=== PATIENT | female | born 2005 | race Caucasian/White ===

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

== ENCOUNTER → 2023-02-14 | Outpatient (CLI) | payer OTHER ==
[2023-02-15 10:43] LABS: Candida species (DNA Probe) Negative (NEGATIVE); G. vaginalis (DNA Probe) Negative (NEGATIVE); T. vaginalis (DNA Probe) Negative (NEGATIVE)
== END | disposition home or self-care (01) ==
LOC: LAB 13:06 → LAB SHORT 13:06
PROVIDERS: Nurse Practitioner
DX: R30.0 Dysuria (principal); R35.0 Frequency of micturition
CPT/HCPCS: 87086; 87480; 87510; 87660

== ENCOUNTER → 2023-06-01 | Outpatient (CLI) | payer OTHER ==
[2023-06-03 01:08] LABS: CHLAMYDIA TRACHOMATIS, NAA Negative (Negative)
== END ==
LOC: LAB 18:22 → LAB SHORT 18:22
PROVIDERS: Obstetrics & Gynecology
DX: Z11.3 Encounter for screening for infections with a predominantly sexual mode of transmission (principal)
CPT/HCPCS: 87491; 87591

== ENCOUNTER → 2023-10-11 | Outpatient (CLI) | payer OTHER ==
[2023-10-11 12:27] LABS: Source, Urine Clean Catch
[2023-10-11 15:40] LABS: Bilirubin, Urine Neg (Neg); Blood, Urine 3+ (Neg); Glucose Qualitative, Urine Neg (Neg); Ketones, Urine Neg (Neg); Leukocyte Esterase, Urine 3+ (Neg); Nitrite, Urine Neg (Neg); Protein, Urine 1+ (Neg); Urobilinogen, Urine NORM (Normal)
[2023-10-11 15:41] LABS: Appearance, Urine Hazy (Clear); Color, Urine Yellow (P-Yellow)
[2023-10-11 15:49] LABS: Amorphous Mod (0-Heavy); Bacteria Mod /hpf; Red Blood Cells, Urine 0-2 /hpf (0-2); Squamous Epithelial Cells Few /hpf (Few)
== END | disposition home or self-care (01) ==
LOC: LAB 12:23 → LAB SHORT 12:23
PROVIDERS: Obstetrics & Gynecology
DX: R52 Pain, unspecified (principal)
CPT/HCPCS: 81001; 87086

== ENCOUNTER → 2023-11-20 | Outpatient (CLI) | payer OTHER | LOC: LAB SHORT 13:47 → LAB 13:47 | DX: O09.893 Supervision of other high risk pregnancies, third trimester (principal); Z3A.00 Weeks of gestation of pregnancy not specified | CPT/HCPCS: 87081; 87150 ==

== ENCOUNTER → 2023-11-27 | Outpatient (CLI) | payer OTHER ==
[2023-11-27 14:48] LABS: Source, Urine Clean Catch
[2023-11-27 16:43] LABS: Appearance, Urine Clear (Clear); Bilirubin, Urine Neg (Neg); Blood, Urine 3+ (Neg); Color, Urine Yellow (P-Yellow); Glucose Qualitative, Urine Neg (Neg); Ketones, Urine Neg (Neg); Leukocyte Esterase, Urine 3+ (Neg); Nitrite, Urine Neg (Neg); Protein, Urine Neg (Neg); Urobilinogen, Urine NORM (Normal)
[2023-11-27 16:59] LABS: Bacteria Many /hpf; Calcium Oxalate Crystals Few /hpf; Squamous Epithelial Cells Few /hpf (Few)
== END ==
LOC: LAB SHORT 14:47 → LAB 14:47
PROVIDERS: Obstetrics & Gynecology
DX: R82.90 Unspecified abnormal findings in urine (principal)
CPT/HCPCS: 81001; 87086

== ENCOUNTER 2023-12-14 19:47 | Inpatient (IN) | payer OTHER ==
[~2023-12-14] VITALS: Ht 152.4 cm; Wt 84.0 kg
[2023-12-14] VITALS (7 sets, daily range): BP systolic 118–125; BP diastolic 71–79
[2023-12-14] MEDS ORDERED: Castor Oil 59.146 ML BTL TOP SCH (20:00)
[2023-12-14] MEDS ORDERED: Oxytocin 10 Unit / ML Vial IM SCH (20:00)
[2023-12-14] MEDS ORDERED: Misoprostol 25 MCG Tab VAG PRN (20:00)
[2023-12-14] MEDS ORDERED: Lactated Ringer's 1,000 ML IV SCH ×2 (20:00)
[2023-12-14] MEDS ORDERED: FentaNYL 2mcg/ml-Bup 0.1% Epd 250 ML EPI PRN (20:00)
[2023-12-14] MEDS ORDERED: Methylergonovine Maleate 0.2MG / ML 1ML Amp IM SCH (20:00)
[2023-12-14] MEDS ORDERED: ePHEDrine Sulfate 50 MG/ML 1ML Injection XX PRN (20:00)
[2023-12-14] MEDS ORDERED: Lactated Ringer's 1,000 ML IV PRN (20:00)
[2023-12-14] MEDS ORDERED: LR Oxytocin 20 Units 1,000 ML IV SCH ×2 (20:00)
[2023-12-14] MEDS ORDERED: Bupivacaine HCl 2.5 MG/ML 10ML P/F Injection XX SCH (20:00)
[2023-12-14] MEDS ORDERED: Lidocaine HCl 1% 30 ML SDV XX SCH (20:00)
[2023-12-14] MEDS ORDERED: Misoprostol 200 MCG Tab PR SCH (20:00)
[2023-12-14] MEDS ORDERED: Bupivacaine 0.5% HCl 5 MG/ML 30MLVIAL XX SCH (20:00)
[2023-12-14] MEDS ORDERED: ASPI81CH PO (20:06)
[2023-12-14] MEDS ORDERED: PRENATAL TABLE1 EAC2 PO (20:07)
[2023-12-14 20:23] LABS: BASOPHILS ABSOLUTE AUTO 0.07 K/mm3 (0.00-0.23); BASOPHILS PERCENT AUTO 0 % (0-2); EOSINOPHILS ABSOLUTE AUTO 0.08 K/mm3 (0.00-0.68); EOSINOPHILS PERCENT AUTO 0 % (0-6); IMMATURE GRAN ABSOLUTE AUTO 0.13 K/mm3 (0.00-0.10); IMMATURE GRAN PERCENT AUTO 1 % (0-1); LYMPHOCYTES ABSOLUTE AUTO 2.23 K/mm3 (0.84-5.20); LYMPHOCYTES PERCENT AUTO 11 % (21-46); MONOCYTES ABSOLUTE AUTO 1.09 K/mm3 (0.16-1.47); MONOCYTES PERCENT AUTO 6 % (4-13); Mean Corpuscular HGB 32.6 pg (26.0-34.0); Mean Corpuscular Volume 93 fL (80-100); NEUTROPHILS PERCENT AUTO 82 % (41-73); Platelet Count 282 K/mm3 (150-400); RDW Coefficient Variation 12.4 % (11.7-14.2); RDW Standard Deviation 42.5 fL (35.1-46.3)
[2023-12-14] MEDS ORDERED: Calcium Carbonate 500 MG Tab Chew PO PRN (20:45)
[2023-12-14] MEDS ORDERED: FentaNYL Citrate 50 MCG/ML 2 ML Injection IV PRN (20:45)
[2023-12-14] MEDS ORDERED: Ondansetron HCl 2 MG / ML 2ML Vial IV PRN (20:45)
[2023-12-14] MEDS ORDERED: Zolpidem Tartrate 5 MG Tab PO PRN (20:45)
[2023-12-14] MEDS ORDERED: Acetaminophen 500 MG Tab PO PRN (20:45)
[2023-12-15] VITALS (34 sets, daily range): BP systolic 107–144; BP diastolic 56–96
[2023-12-15] MEDS ORDERED: Lidocaine HCl 2% 10 ML SDA ONE (09:52)
[2023-12-15] MEDS ORDERED: Docusate Sodium 100 MG Cap PO PRN (11:40)
[2023-12-15] MEDS ORDERED: Ibuprofen 400 MG Tab PO PRN (11:40)
[2023-12-15] MEDS ORDERED: FLU VACC QS2023-24(6MOS UP)/PF 60 MCG/0.5 ML SYRINGE IM PRN (11:40)
[2023-12-15] MEDS ORDERED: Rho(D) Immune Globulin 300 MCG / SYR IM ONE (11:40)
[2023-12-15] MEDS ORDERED: Witch Hazel/Glycerin PADS TOP PRN (11:40)
[2023-12-15] MEDS ORDERED: Benzocaine Topical Anesthetic Spray 60GM TOP PRN (11:45)
[2023-12-15] MEDS ORDERED: Carboprost Tromethamine 250 MCG/ML 1ML Amp IM PRN (11:45)
[2023-12-15] MEDS ORDERED: Misoprostol 200 MCG Tab PR PRN (11:45)
[2023-12-15] MEDS ORDERED: Methylergonovine Maleate 0.2MG / ML 1ML Amp IM PRN (11:45)
[2023-12-15] MEDS ORDERED: Lactated Ringer's 1,000 ML IV SCH (11:45)
[2023-12-15] MEDS ORDERED: LR Oxytocin 20 Units 1,000 ML IV SCH (11:45)
[2023-12-15] MEDS ORDERED: Ketorolac Tromethamine 30mg Vial IV ONE (12:00)
[2023-12-15] MEDS ORDERED: Misoprostol 200 MCG Tab PO ONE (16:14)
[2023-12-15] MEDS ORDERED: Ketorolac Tromethamine 30mg Vial IV PRN (18:00)
[2023-12-16 04:04] VITALS: BP 120/55
[2023-12-16 05:25] LABS: BASOPHILS ABSOLUTE AUTO 0.08 K/mm3 (0.00-0.23); BASOPHILS PERCENT AUTO 0 % (0-2); EOSINOPHILS ABSOLUTE AUTO 0.11 K/mm3 (0.00-0.68); EOSINOPHILS PERCENT AUTO 0 % (0-6); Hematocrit 29.6 % (33.0-51.0); Hemoglobin 10.2 g/dL (11.5-16.0); IMMATURE GRAN ABSOLUTE AUTO 0.21 K/mm3 (0.00-0.10); IMMATURE GRAN PERCENT AUTO 1 % (0-1); LYMPHOCYTES ABSOLUTE AUTO 3.27 K/mm3 (0.84-5.20); LYMPHOCYTES PERCENT AUTO 13 % (21-46); MONOCYTES ABSOLUTE AUTO 1.76 K/mm3 (0.16-1.47); MONOCYTES PERCENT AUTO 7 % (4-13); Mean Corpuscular HGB 32.7 pg (26.0-34.0); Mean Corpuscular HGB Conc 34.5 g/dL (31.5-36.5); Mean Corpuscular Volume 95 fL (80-100); Mean Platelet Volume 9.9 fL (9.1-12.4); NEUTROPHILS PERCENT AUTO 78 % (41-73); Platelet Count 199 K/mm3 (150-400); RDW Coefficient Variation 12.8 % (11.7-14.2); RDW Standard Deviation 44.5 fL (35.1-46.3); Red Blood Cell Count 3.12 M/mm3 (3.80-5.20); White Blood Cell Count 24.53 K/mm3 (4.00-11.30)
[2023-12-16 08:25] VITALS: BP 111/67
[2023-12-16] MEDS ORDERED: Prenatal Vit/FE Fumarate/FA 1 Tab PO SCH (09:00)
[2023-12-16] MEDS ORDERED: IBU800 MG PO (17:29)
[2023-12-16 18:32] VITALS: BP 112/65
[2023-12-16] MEDS ORDERED: Lanolin Cream TOP SCH (18:40)
[2023-12-16 21:13] VITALS: BP 112/58
[2023-12-16 23:50] VITALS: BP 110/69
== END 2023-12-16 23:55 | disposition home or self-care (01) | DRG 806 ==
LOC: BC 19:47
PROVIDERS: ADMIT Obstetrics & Gynecology
PROC: 3E033VJ Introduction of Other Hormone into Peripheral Vein, Percutaneous Approach (ICD-10-PCS; 2023-12-14)
PROC: 3E0P7VZ Introduction of Hormone into Female Reproductive, Via Natural or Artificial Opening (ICD-10-PCS; 2023-12-14)
PROC: 10E0XZZ Delivery of Products of Conception, External Approach (ICD-10-PCS; principal; 2023-12-15)
PROC: 0HQ9XZZ Repair Perineum Skin, External Approach (ICD-10-PCS; 2023-12-15)
PROC: 10907ZC Drainage of Amniotic Fluid, Therapeutic from Products of Conception, Via Natural or Artificial Opening (ICD-10-PCS; 2023-12-15)
DX: O48.0 Post-term pregnancy (principal); D62 Acute posthemorrhagic anemia; Z37.0 Single live birth; D68.51 Activated protein C resistance; O99.12 Other diseases of the blood and blood-forming organs and certain disorders involving the immune mechanism complicating childbirth; O36.0930 Maternal care for other rhesus isoimmunization, third trimester, not applicable or unspecified; Z3A.40 40 weeks gestation of pregnancy; O70.0 First degree perineal laceration during delivery; O90.81 Anemia of the puerperium; O99.334 Smoking (tobacco) complicating childbirth; F17.290 Nicotine dependence, other tobacco product, uncomplicated; O99.344 Other mental disorders complicating childbirth; F31.9 Bipolar disorder, unspecified; F41.9 Anxiety disorder, unspecified; F90.9 Attention-deficit hyperactivity disorder, unspecified type; F43.10 Post-traumatic stress disorder, unspecified; O76 Abnormality in fetal heart rate and rhythm complicating labor and delivery; O69.82X0 Labor and delivery complicated by other cord entanglement, without compression, not applicable or unspecified; O77.0 Labor and delivery complicated by meconium in amniotic fluid; Z79.82 Long term (current) use of aspirin
CPT/HCPCS: 36415; 51702; 59025; 85025; 86850; 86870; 86900; 86901; A9270; J1885; J2001; J2210; J2590; J3010; J7120

== ENCOUNTER 2024-12-11 14:37 | Observation (INO) | payer OTHER ==
[~2024-12-11] VITALS: Ht 165.1 cm; Wt 56.8 kg
[~2024-12-11 14:37] MED LIST changes: +ASPI81CH PO; +IBU800 MG PO; +PRENATAL TABLE1 EAC2 PO
[2024-12-11 15:44] LABS: Source, Urine Clean Catch
[2024-12-11 15:53] LABS: Appearance, Urine Clear (Clear); Bilirubin, Urine Neg (Neg); Blood, Urine 4+ (Neg); Glucose Qualitative, Urine Neg (Neg); Ketones, Urine Neg (Neg); Leukocyte Esterase, Urine Neg (Neg); Nitrite, Urine Neg (Neg); Protein, Urine Neg (Neg); Specific Gravity, Urine 1.005 (1.003-1.022); Urobilinogen, Urine NORM (Normal)
[2024-12-11 16:13] LABS: Bacteria Not Seen /hpf; Color, Urine Pale Yellow (P-Yellow); Squamous Epithelial Cells Not Seen /hpf (Few); White Blood Cells, Urine 0-2 /hpf (0-5)
[2024-12-11 16:52] LABS: BASOPHILS ABSOLUTE AUTO 0.11 K/mm3 (0.00-0.23); BASOPHILS PERCENT AUTO 1 % (0-2); EOSINOPHILS ABSOLUTE AUTO 0.05 K/mm3 (0.00-0.68); EOSINOPHILS PERCENT AUTO 1 % (0-6); Hematocrit 44.1 % (33.0-51.0); Hemoglobin 15.2 g/dL (11.5-16.0); IMMATURE GRAN ABSOLUTE AUTO 0.03 K/mm3 (0.00-0.10); IMMATURE GRAN PERCENT AUTO 0 % (0-1); LYMPHOCYTES ABSOLUTE AUTO 3.88 K/mm3 (0.84-5.20); LYMPHOCYTES PERCENT AUTO 39 % (21-46); MONOCYTES ABSOLUTE AUTO 0.71 K/mm3 (0.16-1.47); MONOCYTES PERCENT AUTO 7 % (4-13); Mean Corpuscular HGB 32.5 pg (26.0-34.0); Mean Corpuscular HGB Conc 34.5 g/dL (31.5-36.5); Mean Corpuscular Volume 94 fL (80-100); Mean Platelet Volume 9.2 fL (9.1-12.4); NEUTROPHILS PERCENT AUTO 53 % (41-73); Platelet Count 374 K/mm3 (150-400); RDW Coefficient Variation 14.1 % (11.7-14.2); Red Blood Cell Count 4.68 M/mm3 (3.80-5.20); White Blood Cell Count 10.08 K/mm3 (4.00-11.30)
[2024-12-11] MEDS ORDERED: NS 1,000 ML IV SCH (17:00)
[2024-12-11 17:05] LABS: U Amphetamine Screen Not Detected; U Barbituate Screen Not Detected; U Benzodiazapine Screen Not Detected; U Buprenorphine Screen Not Detected; U Cannabinoids Screen Not Detected; U Cocaine Screen Not Detected; U Methadone Screen Not Detected; U Methamphetamine Screen Not Detected; U Opiates Screen Not Detected; U Oxycodone Screen Not Detected; U Phencyclidine Screen Not Detected
[2024-12-11 17:05] LABS: International Normalized Ratio 0.94; Prothrombin Time Results 10.1 Sec (9.7-11.5)
[2024-12-11] MEDS ORDERED: LORazepam 2 MG/ML 1ML Injection IV ONE (17:10)
[2024-12-11 17:49] LABS: Albumin, Blood 4.2 g/dL (3.4-5.0); Bilirubin, Total 0.5 mg/dL (0.1-1.0); Bun/Creatinine Ratio 18.6 (12.0-20.0); Calcium, Blood 9.8 mg/dL (8.5-10.1); Creatinine, Blood 0.65 mg/dL (0.40-1.00); Globulin, Blood 4.2 g/dL (2.2-4.0); Potassium, Blood 3.4 mmol/L (3.5-5.5); Total Protein, Blood 8.4 g/dL (6.4-8.2)
[2024-12-11] MEDS ORDERED: Lactated Ringer's 1,000 ML IV ONE (20:10)
[2024-12-11] MEDS ORDERED: Diazepam 5 MG Tab PO ONE (20:25)
[2024-12-12] MEDS ORDERED: Ondansetron 4 MG SoluTab SL ONE (09:30)
[2024-12-12] MEDS ORDERED: Ondansetron HCl 2 MG / ML 2ML Vial IV ONE (10:55)
[2024-12-12] MEDS ORDERED: LORazepam 2 MG/ML 1ML Injection IV ONE (10:55)
[2024-12-12] MEDS ORDERED: LORazepam 2 MG/ML 1ML Injection IV PRN ×2 (11:40→11:45)
[2024-12-12] MEDS ORDERED: Ondansetron HCl 2 MG / ML 2ML Vial IV PRN (11:40)
[2024-12-12] MEDS ORDERED: ChlordiazePOXIDE 25 MG Cap PO PRN ×2 (11:40)
[2024-12-12] MEDS ORDERED: FLU VACC TS2024-25(6MOS UP)/PF 45 MCG/0.5 ML SYRINGE IM SCH (11:40)
[2024-12-12] MEDS ORDERED: Loperamide HCl 2 MG Cap PO PRN (11:45)
[2024-12-12] MEDS ORDERED: Potassium Chloride 20 MEQ TabCR PO ONE (12:00)
[2024-12-12 12:58] LABS: Bun/Creatinine Ratio 17.5 (12.0-20.0); Calcium, Blood 9.3 mg/dL (8.5-10.1); Creatinine, Blood 0.52 mg/dL (0.40-1.00); Magnesium, Blood 1.7 mg/dL (1.6-2.4); Potassium, Blood 3.8 mmol/L (3.5-5.5); Thyroid Stimulating Hormone 0.803 uIU/mL (0.360-4.800)
[2024-12-12 14:47] VITALS: BP 117/79
--- NOTE | 2024-12-12 15:10 | NUR ---
PT ARRIVAL: PT ARRIVES TO UNIT VIA BED AND PATIENT TRANSFFERED TO OUR BED AMBULATING TO BED A STAND BY ASSSIT, AND HAD A STEADY GAIT DURING THE TRANSFER. PATIENT HOOKED UP TO TELEMTRY AND VITAL SIGNS STABLE. CIWA DONE AND PER CIWA SCALE PATIENT IS GOING THROUGH A STABLE WITHDRAW. WAS ORIENTED TO ROOM AND NOTIFIED THAT ER NURSE LIVIA CALLED HER MOM NOITIFYING HER THAT SHE WOULD BE TRANSFFERING TO PCU. PT NOTIFIED SHE WILL HAVE A SITTER AND ORIENTED TO ROOM AND THE UNIT. HAS BED IN LOWEST POSITION AND CALL LIGHT WITHIN REACH.
--- NOTE | 2024-12-12 15:50 | NUR ---
NOTIFIED; THIS RN CALLED MD WALLS REGARDING PATIENTS POTASSIUM DUE AT 12 THAT WAS NOT GIVEN IN THE EMERGENCY ROOM. MD GAVE VERBAL ORDERS TO NOT GIVE THE MEDICATION AND SHE WILL DISCTONINUE THE MEDICATION.
[2024-12-12 16:21] VITALS: BP 121/85
[2024-12-12] MEDS ORDERED: Mag Sulfate 1 GM/D5% 100ML 100 ML IV STA (16:56)
[2024-12-12] MEDS ORDERED: D5W-LR 1,000 ML IV SCH (17:00)
[2024-12-12] MEDS ORDERED: Nicotine 21 MG PATCH TOP SCH (17:25)
--- NOTE | 2024-12-12 17:46 | NUR ---
SHIFT SUMMARY: PATIENT IS ALERT AND ORIENTED X4 AND ACTIVE IN HER CARE. IS ABLE TO MAKE NEEDS KNOWN AND USES CALL LIGHT APPROPIRATELY. CIWA SINCE ARRIVAL HAS BEEN 9. PATIENT ON TELE SHOWING SINUS TACH WITH RATE 105-130. PATIENT DOES TACH UP TO THE 130'S WHEN AMBULATING AND WHEN FIRST WAKING UP. SATTING >92% ON ROOM AIR, EVEN AND UNLABORED RESPIRATIONS AT REST. PATIENT IS TALKING AND DENYING HEARING/SEEING ANYTHING. SEE ARIVAL NOTE FOR FURTHER INFORMATION. PATIENT BLOOD SUGAR WAS LOW WHEN PCT CHECKED AT RN'S REQUEST AND DEXTROSE WAS ORDERED. MAG WAS ALSO ORDERED AND RUN, A NEW LINE WAS PLACED IN THE LEFT FOREARM AND PATIENT TOLERATED IT WELL. PATIENT WAS ABLE TO REST AND DENIES ANY PAIN OR NEEDS AT THIS TIME. HAS CALL LIGHT WITHIN REACH AND BED IN LOWEST POSITION.
[2024-12-12 20:12] VITALS: BP 119/77
[2024-12-13] VITALS (7 sets, daily range): BP systolic 97–142; BP diastolic 71–102
[2024-12-13 04:27] LABS: BASOPHILS ABSOLUTE AUTO 0.05 K/mm3 (0.00-0.23); BASOPHILS PERCENT AUTO 1 % (0-2); EOSINOPHILS ABSOLUTE AUTO 0.16 K/mm3 (0.00-0.68); EOSINOPHILS PERCENT AUTO 2 % (0-6); Hematocrit 38.2 % (33.0-51.0); Hemoglobin 12.6 g/dL (11.5-16.0); IMMATURE GRAN ABSOLUTE AUTO 0.01 K/mm3 (0.00-0.10); IMMATURE GRAN PERCENT AUTO 0 % (0-1); LYMPHOCYTES ABSOLUTE AUTO 2.56 K/mm3 (0.84-5.20); LYMPHOCYTES PERCENT AUTO 35 % (21-46); MONOCYTES ABSOLUTE AUTO 0.85 K/mm3 (0.16-1.47); MONOCYTES PERCENT AUTO 12 % (4-13); Mean Corpuscular HGB 31.8 pg (26.0-34.0); Mean Corpuscular Volume 97 fL (80-100); Mean Platelet Volume 9.5 fL (9.1-12.4); NEUTROPHILS ABSOLUTE AUTO 3.76 K/mm3 (1.96-9.15); NEUTROPHILS PERCENT AUTO 51 % (41-73); Platelet Count 259 K/mm3 (150-400); RDW Coefficient Variation 13.3 % (11.7-14.2); RDW Standard Deviation 47.9 fL (35.1-46.3); Red Blood Cell Count 3.96 M/mm3 (3.80-5.20); White Blood Cell Count 7.39 K/mm3 (4.00-11.30)
--- NOTE | 2024-12-13 04:30 | NUR ---
SHIFT SUMMARY. SHIFT HAS BEEN UNREMARKABLE. PT AOX4, PLEASANT, COOPERATIVE WITH CARE, ABLE TO MAKE NEEDS KNOWN. SOMEWHAT FLAT DEMEANOR THROUGHOUT SHIFT BUT VERY PLEASANT. HAS BEEN ABLE TO REST COMFORTABLY THROUGHOUT MOST OF SHIFT. VITALS HAVE BEEN STABLE. PT HAS BEEN RUNNING SINUS THROUGHOUT SHIFT WITH RATE SETTLING IN THE 70s-80s RANGE WHILE SLEEPING AND UP TO 100s-120s WHILE AWAKE. MAINTAINS ADEQUATE SATURATION ON ROOM AIR. 1:[address] THROUGHOUT SHIFT[address] MINIMAL OBSERVED SIGNS OF WITHDRAWAL. CIWA HAS BEEN <8 THROUGHOUT SHIFT, NOT MEDICATED PER CIWA PROTOCOLS THUS FAR. BED LOCKED IN LOWEST POSITION. CALL LIGHT LEFT WITHIN REACH. CONTINUING TO MONITOR.
[2024-12-13 04:51] LABS: Albumin, Blood 3.3 g/dL (3.4-5.0); Bilirubin, Total 1.3 mg/dL (0.1-1.0); Bun/Creatinine Ratio 12.4 (12.0-20.0); Calcium, Blood 8.7 mg/dL (8.5-10.1); Creatinine, Blood 0.65 mg/dL (0.40-1.00); Globulin, Blood 3.2 g/dL (2.2-4.0); Potassium, Blood 4.1 mmol/L (3.5-5.5); Total Protein, Blood 6.5 g/dL (6.4-8.2)
[2024-12-13] MEDS ORDERED: Enoxaparin 40 MG/0.4 ML SYR SC SCH (09:00)
[2024-12-13] MEDS ORDERED: Folic Acid 1 MG TAB PO SCH (09:00)
[2024-12-13] MEDS ORDERED: Thiamine HCl 100 MG Tab PO SCH (09:00)
--- NOTE | 2024-12-13 13:22 | NUR ---
TRANSFER: PT TRANSFERRED TO MEDICAL ROOM 344 FROM PCU 8 VIA WHEELCHAIR. REPORT CALLED TO MED RN. ALL BELONGINGS WITH PT.
--- NOTE | 2024-12-13 16:40 | NUR ---
TRANSFER AND SHIFT SUMMARY PATIENT ALERT AND INTERACTIVE. PATIENT DENIES ANY SI AT THIS TIME. PATIENT INDEPENDENT IN THE ROOM. SITTER PRESENT. DENIES HALLUCINATIONS. PATIENT NOTED TO HAVE MILD TREMORS AND HEARTBURN. PATIENT MEDICATED IN PCU WITH LIBRIUM. ZOFRAN GIVEN FOR HEARTBURN WITH MINIMAL RESULTS. ATTEMPTED TO CALL PROVIDER RELATED TO HEARTBURN. MESSAGE LEFT AND NO NEW ORDERS. PATIENT TO GO TO [facility] IF MEDICALLY STABLE TOMORROW.
--- NOTE | 2024-12-13 19:59 | NUR ---
PATIENT HAS ORDER FOR NO CHEMICAL DVT PROPHYLAXIS, PATIENT REFUSED TO HAVE SCD'S. PATIENT AMBULATES FREQUENTLY IN ROOM.
[2024-12-13] MEDS ORDERED: Temazepam 7.5 MG Cap PO ONE (21:50)
[2024-12-14 00:09] VITALS: BP 101/67
[2024-12-14 03:57] VITALS: BP 96/62
--- NOTE | 2024-12-14 05:08 | NUR ---
SHIFT SUMMARY. PATIENT IS A&OX4, PLEASANT AND COOPERATIVE WITH CARE. PATIENT HAS 1:1 SITTER FOR SI. PATIENT IS ABLE TO AMBULATE INDEPENDENTLY IN ROOM. PATIENT C/O INSOMNIA TONIGHT-HOSPITALIST CONTACTED AND ORDERED FOR 1X DOSE OF TEMAZEPAM-SEE ORDERS. PATIENT ABLE TO GET SOME REST THIS SHIFT. NO ACUTE CHANGES NOTED. PLAN IS FOR PATIENT TO GO TO [facility] TODAY 12/14/24. BED IS LOCKED IN THE LOWEST POSITION WITH CALL LIGHT IN REACH. CARE IS ONGOING.
[2024-12-14 06:47] LABS: BASOPHILS ABSOLUTE AUTO 0.05 K/mm3 (0.00-0.23); BASOPHILS PERCENT AUTO 1 % (0-2); EOSINOPHILS ABSOLUTE AUTO 0.35 K/mm3 (0.00-0.68); EOSINOPHILS PERCENT AUTO 4 % (0-6); Hematocrit 40.1 % (33.0-51.0); Hemoglobin 13.6 g/dL (11.5-16.0); IMMATURE GRAN ABSOLUTE AUTO 0.03 K/mm3 (0.00-0.10); IMMATURE GRAN PERCENT AUTO 0 % (0-1); LYMPHOCYTES ABSOLUTE AUTO 2.62 K/mm3 (0.84-5.20); LYMPHOCYTES PERCENT AUTO 32 % (21-46); MONOCYTES ABSOLUTE AUTO 0.71 K/mm3 (0.16-1.47); MONOCYTES PERCENT AUTO 9 % (4-13); Mean Corpuscular HGB 32.7 pg (26.0-34.0); Mean Corpuscular HGB Conc 33.9 g/dL (31.5-36.5); Mean Corpuscular Volume 96 fL (80-100); Mean Platelet Volume 9.9 fL (9.1-12.4); NEUTROPHILS ABSOLUTE AUTO 4.51 K/mm3 (1.96-9.15); NEUTROPHILS PERCENT AUTO 55 % (41-73); Platelet Count 270 K/mm3 (150-400); RDW Coefficient Variation 13.3 % (11.7-14.2); RDW Standard Deviation 47.6 fL (35.1-46.3); Red Blood Cell Count 4.16 M/mm3 (3.80-5.20); White Blood Cell Count 8.27 K/mm3 (4.00-11.30)
[2024-12-14 07:14] VITALS: BP 109/77
[2024-12-14 07:27] LABS: Albumin, Blood 3.4 g/dL (3.4-5.0); Bilirubin, Total 0.6 mg/dL (0.1-1.0); Bun/Creatinine Ratio 15.1 (12.0-20.0); Calcium, Blood 9.1 mg/dL (8.5-10.1); Creatinine, Blood 0.66 mg/dL (0.40-1.00); Globulin, Blood 3.4 g/dL (2.2-4.0); Potassium, Blood 3.7 mmol/L (3.5-5.5); Total Protein, Blood 6.8 g/dL (6.4-8.2)
[2024-12-14] MEDS ORDERED: Nicotine 21 MG PATCH TOP SCH (10:00)
[2024-12-14] MEDS ORDERED: FOLI1 PO (11:42)
[2024-12-14] MEDS ORDERED: NICO21TP TOP (11:42)
[2024-12-14] MEDS ORDERED: B-1100 M1 PO (11:43)
--- NOTE | 2024-12-14 13:42 | NUR ---
DISCHARGE NOTE PT A&OX4. PT ADMITTED DUE TO SI AND ALCOHOL WITHDRAWL. PT REPORTED NO CURRENT IDEATION. PT REPORTED NO WEAKNESS. PT INDEPENDENT IN ROOM. PT CONT. OF URINE AND BM. PT REPORTS NO CHEST PAIN, CHEST DISCOMFORT. NO SIGNS OF ALCOHOL WITHDRAWL, PT HAD NO REPORT OF TREMORS. IV REMOVED. TELE D/C. 1:1 SITTER D/C POST DISCHARGE. GAVE REPORT TO NURSE AT [facility]. PT ESCORTED BY SECURITY. SECURITY HAS PT BELONGINGS. DISCHARGE INSTRUCTIONS WENT WITH PT.
== END 2024-12-14 13:36 | disposition home or self-care (01) ==
LOC: ER 14:37 → MEDS 14:38 → EOR 14:38 → PCU 14:38 → ER 14:38 → EOR 14:39 → PCU 12-12 14:43 → EOR 12-12 14:43 → PCU 12-12 16:48 → MEDS 12-13 13:30 → PCU 12-13 13:30 → MEDS 12-13 21:53
PROVIDERS: Student in an Organized Health Care Education/Training Program; ADMIT Student in an Organized Health Care Education/Training Program
DX: F10.139 Alcohol abuse with withdrawal, unspecified (principal); R45.851 Suicidal ideations; F33.2 Major depressive disorder, recurrent severe without psychotic features; D68.2 Hereditary deficiency of other clotting factors; E87.0 Hyperosmolality and hypernatremia; F41.9 Anxiety disorder, unspecified; F10.129 Alcohol abuse with intoxication, unspecified; E87.6 Hypokalemia; E87.8 Other disorders of electrolyte and fluid balance, not elsewhere classified; F31.2 Bipolar disorder, current episode manic severe with psychotic features; Z79.82 Long term (current) use of aspirin
CPT/HCPCS: 36415; 70450; 80048; 80053; 80320; 81001; 82140; 82947; 83735; 84443; 84703; 85025; 85610; 93005; 93010; 96361; 96374; 96375; 96376; 99285-25; A9270; G0378; J2060; J2405; J3475; J7030; J7120; J7121

== ENCOUNTER 2024-12-14 12:26 | Inpatient (IN) | payer OTHER ==
[~2024-12-14] VITALS: Ht 152.4 cm; Wt 56.1 kg
[~2024-12-14 12:26] MED LIST changes: +B-1100 M1 PO; +FOLI1 PO; +NICO21TP TOP
[2024-12-14] MEDS ORDERED: FLU VACC TS2024-25(6MOS UP)/PF 45 MCG/0.5 ML SYRINGE IM PRN (13:35)
[2024-12-14] MEDS ORDERED: OLANZapine ODT 10 MG Tab MM PRN (13:35)
[2024-12-14] MEDS ORDERED: Calcium Carbonate 500 MG Tab Chew PO PRN (13:35)
[2024-12-14] MEDS ORDERED: LORazepam 2 MG Tab PO PRN (13:35)
[2024-12-14] MEDS ORDERED: DiphenhydrAMINE HCl 50 MG/ML 1ML Vial IV PRN (13:35)
[2024-12-14] MEDS ORDERED: Ibuprofen 600 MG Tab PO PRN (13:35)
[2024-12-14] MEDS ORDERED: HydrOXYzine Pamoate 50 MG Cap PO PRN (13:35)
[2024-12-14] MEDS ORDERED: Polyethylene Glycol 3350 17 gm PO PRN (13:40)
[2024-12-14] MEDS ORDERED: Melatonin 3 MG Tab PO PRN (13:40)
[2024-12-14] MEDS ORDERED: TraZODone HCl 50 MG Tab PO PRN (13:40)
[2024-12-14] MEDS ORDERED: Ondansetron 4 MG SoluTab MM PRN (13:40)
[2024-12-14] MEDS ORDERED: DiphenhydrAMINE HCl 50 MG Cap PO PRN (13:40)
[2024-12-14] MEDS ORDERED: Acetaminophen 325 MG TABLET PO PRN (13:40)
[2024-12-14] MEDS ORDERED: Aluminum Hydroxide 320MG/5ML 473 ML PO PRN (13:40)
[2024-12-14] MEDS ORDERED: Naltrexone HCl 50 MG Tab PO SCH (14:00)
[2024-12-14] MEDS ORDERED: LamoTRIgine 25 MG Tab PO SCH (14:00)
[2024-12-14] MEDS ORDERED: ChlordiazePOXIDE 25 MG Cap PO SCH (14:00)
[2024-12-14] MEDS ORDERED: Gabapentin 100 MG Cap PO SCH (14:00)
--- NOTE | 2024-12-14 15:37 | NUR ---
ADMIT NOTE. PT ADMITTED AT 1340 FROM MED-SURG FLOOR. REPORT TAKEN FROM XIOMY CABA. PT A/O X4. UNDERSTANDS THAT SHE IS AN UNVOLUNTARY ADMIT AT THIS TIME. PT WAS FOUND UNCONSCIOUS AT HOME BY SISTER FROM ALCOHOL INTOXICATION. PT STATES DRINKS A 5TH OF WHIKEY PER DAY SINCE TURNING 19 IN AUGUST OF 2024. DENIES TO BE SI, HI, AND AVH. DENIES TO HAVE WITHDRAWL SYMPTOMS AT THIS TIME. LIVES AT HOME WITH MOM, SISTER, AND 1 Y/O DAUGHTER. MEDS GIVEN AFTER ADMITION TO [facility]. EDUCATED ON EACH MED WHEN GIVEN. PROVIDED TOUR AND PT EXPECTIONS FOR STAY IN THE UNIT: PATICAPATE IN GROUPS, TAKE MEDICATIOS, SHOWER DAILY, ADL INDEPENDANTLY. QUESTIONS ANSWERED AND MOTHER AWARE OF PT ADMIT PT CALLED HER ABOUT HER VISITING POSSIBLY TONIGHT. MOTHER UNABLE TO VISIT TODAY. WILL CONTINUE TO MONITOR FOR SAFETY AND WELLNESS
--- NOTE | 2024-12-14 16:48 | NUR ---
SHIFT SUMMARY: PT HAS BEEN INTERACTING WITH OTHERS AND RESTING SINCE HER ADMIT. DENIES TO HAVE ANY WITHDRAWAL SYMPTOMS AT THIS TIME. IS A/O X4 AND PLEASANT. WILL CONTINUE TO MONITOR FOR SAFETY
[2024-12-14 18:19] VITALS: BP 117/70
[2024-12-14 20:10] VITALS: BP 119/81
[2024-12-14] MEDS ORDERED: Lithium Carbonate 300 MG TabCR PO SCH (21:00)
--- NOTE | 2024-12-15 04:16 | NUR ---
SHIFT SUMMARY: PATIENT WAS IN HER ROOM AT THE BEGINNING OF THE SHIFT, WITH HER EYES CLOSED. SHE WAS EITHER AWAKE OR EASILY AWAKENED WHEN GREETED BY RN. SHE GOT UP FOR SNACK AND FOLLOW UP GROUP AT 1999. SHE ATE 100% OF SNACK. SHE WAS PLEASANT AND COOPERATIVE WITH CARES. SHE WAS MEDICATION COMPLIANT, AND ASKED PERTINENT QUESTIONS TO UNDERSTAND HER MEDICATIONS. SHE WENT BACK TO BED AFTER SNACK TIME AND WAS NOTED TO BE IN BED RESTING WITH EYES CLOSED AND RESPIRATIONS CONFIRMED FOR THE REMAINDER OF THE SHIFT, NIGHT LIGHT ON IN ROOM. SHE DENIED ANY THOUGHTS OF SUICIDE OR SELF HARM THIS SHIFT. CONTINUING TO MONITOR FOR SAFETY WITH Q15 MINUTE CHECKS.
[2024-12-15 08:09] VITALS: BP 129/87
[2024-12-15] MEDS ORDERED: Multivitamins 1 Tab PO SCH (09:00)
[2024-12-15] MEDS ORDERED: Nicotine 21 MG PATCH TOP ONE (09:10)
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
[2024-12-15 20:01] VITALS: BP 133/90
[2024-12-15] MEDS ORDERED: Gabapentin 100 MG Cap PO SCH (21:00)
[2024-12-15] MEDS ORDERED: ChlordiazePOXIDE 25 MG Cap PO SCH (21:00)
--- NOTE | 2024-12-16 04:25 | NUR ---
SHIFT SUMMARY PATIENT SITTING ON BED WITH JOURNAL, PATIENT VERBALIZED THAT SHE IS FEELING "DEPRESSED" AND IS WRITING OUT WHAT SHE WANTS TO DISCUSS IN THERAPY. PATIENT DENIES SI, HI, AVH. COOPERATIVE WITH MEDICATIONS. RESTLESS AFTER SNACK REQUIRING 2ND DOSE OF TRAZODONE. REFUSING MELATONIN STATING THAT IS GIVES HER NIGHTMARES. PATIENT CURRENTLY APPEARS TO BE SLEEPING WITH RESP EVEN AND UNLABORED. CONTINUE TO MONITOR Q15MIN.
[2024-12-16 08:16] VITALS: BP 115/79
--- NOTE | 2024-12-16 08:38 | NUR ---
SHIFT ASSESSMENT: PT IS ALERT, ORIENTED, PLEASANT AND COOPERATIVE WITH CARE. SHE DENIED SI, HI, AVH AND PAIN. PT ENDORSED ANXIETY, "I DON'T KNOW WHY I'M FEELING ANXIOUS." SHE RATED THE ANXIETY 5/10w. PT ENGAGED IN POSITIVE CONVERSATION WITH PEERS AT BREAKFAST. HER AFFECT IS EUTHYMIC.
[2024-12-16] MEDS ORDERED: Nicotine 21 MG PATCH TOP SCH (09:00)
--- NOTE | 2024-12-16 17:36 | NUR ---
SHIFT NOTE PT TO ALL GROUPS AND MEALS THIS SHIFT. SHE DENIES ANY SI/HI/AVTH. NO TREMORS WERE PRESENT THIS SHIFT. SHE SPENT TWO SEPERATE SESSIONS 1:1 WITH SW. SHE HAD A VISIT WITH TWO FRIENDS THIS EVENING. PT HAD A COMPLAINT THIS AFTERNOON ABOUT 6/10 ANXIETY AND WAS MEDICATED WITH PRN VISTARIL. SHE WAS COMPLIANT WITH ALL MEDICATIONS AND Q15 MIN SAFETY CHECKS ARE PERFORMED.
[2024-12-16 20:57] VITALS: BP 110/80
[2024-12-16] MEDS ORDERED: ChlordiazePOXIDE 10 MG Cap PO SCH (21:00)
[2024-12-16] MEDS ORDERED: Lithium Carbonate 300 MG TabCR PO SCH ×2 (21:00)
--- NOTE | 2024-12-17 04:42 | NUR ---
Patient is alert and oriented times four. She is pleasant and conversant with peers and staff and cooperative with cares. [place] was out in the milieu until lights out watching TV and playing cards. No SI,HI or AVH or TH during evening assessment. Asleep since approximately 2230. No signs or complaints of withdrawel symptoms overnight. Will continue close observation every 15 minutes for safety and comfort.
[2024-12-17 08:18] VITALS: BP 112/80
--- NOTE | 2024-12-17 18:25 | NUR ---
SHIFT SUMMARY PT AxOx4. PLEASANT AND COOPERATIVE WITH CARE. PT DENIES SI/HI AND AVTH THIS SHIFT. SHE HAS BEEN FOLLOWING TREATMENT PLAN INCLUDING TAKING MEDICATIONS PRESCRIBED, ATTENDING ALL MILIEU GROUPS AND MINGLING APPROPRIATELY WITH STAFF/PEERS. PT MET WITH FLOOR COVERER TODAY FOR THERAPY. SHE ALSO HAD A VISIT WITH FAMILY. PT WAS MEDICATED x1 FOR ANXIETY AFTER UTILIZING COPING TOOLS FOR A FEW HOURS FIRST. PT IS CURRENTLY SITTING IN GROUPS ROOM WATCHING A MOVIE. DENIES ANY NEEDS AT THIS TIME. EXPECTED DC IS PLANNED FOR 12/21/24.
[2024-12-17 20:13] VITALS: BP 121/84
[2024-12-17] MEDS ORDERED: ChlordiazePOXIDE 10 MG Cap PO SCH (21:00)
--- NOTE | 2024-12-18 04:15 | NUR ---
Patient is very pleasant and cooperative with both staff and peers. She is A&0X4, She is out of her room and participating in the activities of the milieu. No signs of alcohol withdrawel noted on assessment. Denies SI, HI or AVTH. Will continue close monitoring every 15 minutes for patient safety and comfort.
[2024-12-18 08:19] VITALS: BP 114/74
[2024-12-18 10:26] LABS: BASOPHILS ABSOLUTE AUTO 0.07 K/mm3 (0.00-0.23); BASOPHILS PERCENT AUTO 1 % (0-2); EOSINOPHILS ABSOLUTE AUTO 0.41 K/mm3 (0.00-0.68); EOSINOPHILS PERCENT AUTO 4 % (0-6); Hematocrit 41.4 % (33.0-51.0); Hemoglobin 13.9 g/dL (11.5-16.0); IMMATURE GRAN ABSOLUTE AUTO 0.05 K/mm3 (0.00-0.10); IMMATURE GRAN PERCENT AUTO 1 % (0-1); LYMPHOCYTES ABSOLUTE AUTO 1.45 K/mm3 (0.84-5.20); LYMPHOCYTES PERCENT AUTO 14 % (21-46); MONOCYTES ABSOLUTE AUTO 0.62 K/mm3 (0.16-1.47); MONOCYTES PERCENT AUTO 6 % (4-13); Mean Corpuscular HGB 32.9 pg (26.0-34.0); Mean Corpuscular HGB Conc 33.6 g/dL (31.5-36.5); Mean Corpuscular Volume 98 fL (80-100); Mean Platelet Volume 9.7 fL (9.1-12.4); NEUTROPHILS ABSOLUTE AUTO 7.98 K/mm3 (1.96-9.15); NEUTROPHILS PERCENT AUTO 75 % (41-73); Platelet Count 312 K/mm3 (150-400); RDW Coefficient Variation 13.2 % (11.7-14.2); Red Blood Cell Count 4.22 M/mm3 (3.80-5.20); White Blood Cell Count 10.58 K/mm3 (4.00-11.30)
[2024-12-18 10:52] LABS: Albumin, Blood 3.8 g/dL (3.4-5.0); Bilirubin, Total 0.9 mg/dL (0.1-1.0); Bun/Creatinine Ratio 18.8 (12.0-20.0); Calcium, Blood 9.5 mg/dL (8.5-10.1); Creatinine, Blood 0.75 mg/dL (0.40-1.00); Globulin, Blood 3.9 g/dL (2.2-4.0); Potassium, Blood 3.7 mmol/L (3.5-5.5); Total Protein, Blood 7.7 g/dL (6.4-8.2)
[2024-12-18 11:00] LABS: Lithium 0.52 mmol/L (0.60-1.20)
--- NOTE | 2024-12-18 16:38 | NUR ---
SHIFT SUMMARY: PT A/O X4. PLEASANT AND COOPERATIVE. DENIES TO BE SI, HI AND AVH. DOES FEEL SHE IS SAD AND DEPRESSED. WHEN ASKED IF SHE IS CRAVING ALCOHOL, STATES THAT SOMETIMES IN THE MORNING SHE HAS ,BUT THINKS NOW IT MAY BE OUT OF HABIT AUTOMATICALLY. SAID SHE DIDN'T SLEEP WELL LAST NIGHT. DR GRIGGS CHANGED MED TO SEROQUEL FROM TRAZODONE. PARTICIPATES IN ACTIVITIES AND IN THE MILIEU WITH OTHERS. " I THINK I AM DOING BETTER.' PT STATEED THAT SHE WANTS TO CONTINUE THERAPY WHEN SHE DISCHARGES. LET HER KNOW THAT CASE MANGEMENT AND VINYL CUTTER WILL BE SPEAKING WITH HER AND MAYBE SOME PLANNING CAN BE OF SERVICE FOR WHEN SHE DISCHARGES. WILL CONTINUE TO MONITOR ER JASON LAGUERRE.
[2024-12-18 20:52] VITALS: BP 119/80
[2024-12-18] MEDS ORDERED: Gabapentin 300 MG Cap PO SCH (21:00)
[2024-12-18] MEDS ORDERED: QUEtiapine Fumarate 100 MG Tab PO SCH (21:00)
--- NOTE | 2024-12-19 04:22 | NUR ---
SHIFT SUMMARY PT PRESENT IN GROUP ROOM AT START OF SHIFT, WATCHING TV WITH PEERS. PT IS PLEASANT AND COOPEARTIVE. DENIES ANY SI, HI OR AVH. SHE WAS COMPLIANT WITH MEDICATIONS. NICOTINE PATCHED WAS REMOVED WHEN PATIENT WENT TO BED AT APPROXIMATELY 2215. PT HAS APPEARED TO SLEEP THROUGHOUT THE NIGHT. Q15 MINUTE CHECKS TO CONITNUE PER UNIT PROTOCOL.
[2024-12-19 08:25] VITALS: BP 133/83
--- NOTE | 2024-12-19 17:07 | NUR ---
SHIFT SUMMARY: PT A/O X4. PLEASANT AND COOPERATIVE. DENIES SI, HI, AND AVH. FEELS THAT SHE IS GETTING BETTER AND LOOKS FORWARD TO GOING HOME SOON. COMPLIANT WITH MEDS. PARTICIPATES IN GROUPS AND INTERACTS IN THE MILIEU WELL WITH OTHERS. POTENTIAL TO DISCHARGE ON MONDAY. WILL CONTINUE TO MONITOR.
[2024-12-19] MEDS ORDERED: TraZODone HCl 100 MG Tab PO PRN (17:25)
[2024-12-19 20:25] VITALS: BP 121/79
[2024-12-19] MEDS ORDERED: Lithium Carbonate 450 MG TabCR PO SCH (21:00)
[2024-12-19 21:07] VITALS: BP 116/76
--- NOTE | 2024-12-20 04:19 | NUR ---
SHIFT SUMMARY PT PRESENT IN HALLWAY, TALKING WITH HER ROOMMATE AT THE START OF MY SHIFT. SHE IS PLEASANT AND COOPERATIVE WITH CARE. STATES HER MOOD IS "MORE EVEN AND CALM". PT DENIES ANY SI, HI, THOUGHTS OF SELF HARM OR AVH. PT HAD EVENING SNACK, WAS COMPLIANT WITH MEDICATIONS AND RECEIVED PRN TRAZODONE TO ASSIST WITH SLEEP. NICOTINE PATCH WAS REMOVED PRIOR TO BED. PT HAS APPEARED TO SLEEP WELL THROUGHOUT THE NIGHT. Q15 MINUTE CHECKS TO CONTINUE PER UNIT PROTOCOL.
[2024-12-20 08:19] VITALS: BP 112/71
[2024-12-20 09:12] LABS: Lithium 1.15 mmol/L (0.60-1.20)
--- NOTE | 2024-12-20 11:45 | NUR ---
NURSE CARE COODINATOR: DISCHARGE REVIEWED WITH PATIENT. RESOURCES GIVEN FOR PARENTING EDUCATION AND SUPPORT ([facility]). HOUSING AUTHORITY FOR LOW INCOME HOUSING: SIGN UP AND EDUCATION HAND OUT GIVEN.
--- NOTE | 2024-12-20 14:36 | NUR ---
HOSPITAL DISCHARGE INFORMATION PHARMACY: [facility]
--- NOTE | 2024-12-20 16:06 | NUR ---
HOSPITAL DISCHARGE INFORMATION PATIENT HAS A [facility]/FOLLOW UP APPOINTEMT WITH PCP: ON Monday12/23/24 AT 10:30 AM, [facility]. PCP WOULD LIKE THE DISCHARGE SUMMARY FAXED TO HER AT ATTENTION: ROSALEE.
--- NOTE | 2024-12-20 16:45 | NUR ---
SHIFT SUMMARY: PT ALERT, ORIENTED AND COOPERATIVE. COMPLIANT WITH MEDICATIONS. PT DISCUSSED LOOKING FORWARD TO DISCHARGING TOMORROW. DENIES SI, HI AND AVH. SHE HAS BEEN PRESENT ON THE UNIT, ACTIVE IN MILIEU. PARTICIPATED IN MEALS AND ATTENDED GROUPS.
--- NOTE | 2024-12-20 17:19 | NUR ---
HOSPITAL DISCHARGE APPOINTMENT INFORMATION Patient is scheduled to meet with Norberto Corona from [facility] crisis team on December at 1:00 PM // [address], [place] [address] // [phone] MICKI entered information into patient's discharge packet
[2024-12-20] MEDS ORDERED: GABA300 PO (18:21)
[2024-12-20] MEDS ORDERED: HYDPAM50 PO (18:22)
[2024-12-20] MEDS ORDERED: Naltrexone HCl50 MG PO (18:24)
[2024-12-20] MEDS ORDERED: LAMO25 (18:24)
[2024-12-20] MEDS ORDERED: TRAZ100 PO (18:24)
[2024-12-20] MEDS ORDERED: LITH300ER PO (18:28)
[2024-12-20 20:56] VITALS: BP 123/83
[2024-12-20] MEDS ORDERED: Lithium Carbonate 300 MG TabCR PO SCH (21:00)
--- NOTE | 2024-12-21 04:55 | NUR ---
SHIFT SUMMARY PATIENT RESTING ON BED IN ROOM WORKING ON JOURNAL. BACK TO BED AFTER SNACK. VERBALIZED THAT SHE CONTINUES TO FEEL ANXIOUS, BUT VERBALIZED THAT COOPING SKILLS SHE HAS LEARNED HERE ARE HELPING. PATIENT DENIES SI, HI, AVH. COOPERATIVE WITH MEDICATIONS. PATIENT SLEEPING WELL T/O NIGHT RESP EVEN AND UNLABORED. CONTINUE TO MONITOR Q15MIN
[2024-12-21 08:15] VITALS: BP 113/72
[2024-12-21] MEDS ORDERED: LAMO100 PO (09:15)
--- NOTE | 2024-12-21 11:23 | NUR ---
DISCHARGE NOTE: PT DISCHARGED HOME. STATES UNDERSTANDING OF DISCHARGE INSTRUCTIONS AND DENIED QUESTIONS. DENIED SI, HI AND AVH. PT RIDE ARRIVED TO TAKE HER HOME. PT BELONGINGS RETURNED BY RICHA GIPSON. PT AMBULATED OUT OF DEPT WITHOUT DIFFICUTLY. DISCHARGE INSTRUCTIONS AND BELONGINGS IN HAND.
--- NOTE | 2024-12-21 16:45 | NUR ---
DISCHARGED SUMMARY FAXED TO PCP OFFICE REQUESTED BY [employer]ATIONSHIP MANAGER.
== END 2024-12-21 11:25 | disposition home or self-care (01) | DRG 885 ==
LOC: BHU 12:26
PROVIDERS: ADMIT Student in an Organized Health Care Education/Training Program
DX: F31.81 Bipolar II disorder (principal); R45.851 Suicidal ideations; F10.20 Alcohol dependence, uncomplicated; Z79.899 Other long term (current) drug therapy
CPT/HCPCS: 36415; 80053; 80178; 83036; 85025; A9270

== ENCOUNTER 2025-02-17 16:37 | Observation (INO) | payer OTHER ==
[~2025-02-17] VITALS: Ht 152.4 cm; Wt 54.4 kg
[~2025-02-17 16:37] MED LIST changes: +GABA300 PO; +HYDPAM50 PO; +LAMO100 PO; +LAMO25; +LITH300ER PO; +Naltrexone HCl50 MG PO; +TRAZ100 PO
[2025-02-17] MEDS ORDERED: Amoxicillin/Clavulanate K 875 MG Tab PO ONE (16:55)
[2025-02-17] MEDS ORDERED: MetroNIDAZOLE 500 MG Tab PO ONE (16:55)
[2025-02-17 17:33] LABS: Source, Urine Voided
[2025-02-17 17:42] LABS: BASOPHILS ABSOLUTE AUTO 0.09 K/mm3 (0.00-0.23); BASOPHILS PERCENT AUTO 1 % (0-2); EOSINOPHILS ABSOLUTE AUTO 0.26 K/mm3 (0.00-0.68); EOSINOPHILS PERCENT AUTO 3 % (0-6); Hematocrit 43.8 % (33.0-51.0); Hemoglobin 14.6 g/dL (11.5-16.0); IMMATURE GRAN ABSOLUTE AUTO 0.02 K/mm3 (0.00-0.10); IMMATURE GRAN PERCENT AUTO 0 % (0-1); LYMPHOCYTES ABSOLUTE AUTO 2.58 K/mm3 (0.84-5.20); LYMPHOCYTES PERCENT AUTO 28 % (21-46); MONOCYTES ABSOLUTE AUTO 0.58 K/mm3 (0.16-1.47); MONOCYTES PERCENT AUTO 6 % (4-13); Mean Corpuscular HGB 31.3 pg (26.0-34.0); Mean Corpuscular HGB Conc 33.3 g/dL (31.5-36.5); Mean Corpuscular Volume 94 fL (80-100); Mean Platelet Volume 9.5 fL (9.1-12.4); NEUTROPHILS ABSOLUTE AUTO 5.58 K/mm3 (1.96-9.15); NEUTROPHILS PERCENT AUTO 61 % (41-73); Platelet Count 344 K/mm3 (150-400); RDW Coefficient Variation 12.1 % (11.7-14.2); RDW Standard Deviation 42.3 fL (35.1-46.3); Red Blood Cell Count 4.67 M/mm3 (3.80-5.20); White Blood Cell Count 9.11 K/mm3 (4.00-11.30)
[2025-02-17 17:56] LABS: Appearance, Urine Clear (Clear); Bilirubin, Urine Neg (Neg); Blood, Urine 2+ (Neg); Glucose Qualitative, Urine Neg (Neg); Ketones, Urine Neg (Neg); Leukocyte Esterase, Urine Neg (Neg); Nitrite, Urine Neg (Neg); Protein, Urine Neg (Neg); Specific Gravity, Urine 1.005 (1.003-1.022); Urobilinogen, Urine NORM (Normal)
[2025-02-17 18:15] LABS: Ethanol (Alcohol), Blood, Med 299 mg/dL; Salicylate <1.7 mg/dL (2.8-20.0)
[2025-02-17 18:26] LABS: U Amphetamine Screen Not Detected; U Barbituate Screen Not Detected; U Benzodiazapine Screen Not Detected; U Buprenorphine Screen Not Detected; U Cannabinoids Screen Not Detected; U Cocaine Screen Not Detected; U Methadone Screen Not Detected; U Methamphetamine Screen Not Detected; U Opiates Screen Not Detected; U Oxycodone Screen Not Detected; U Phencyclidine Screen Not Detected
[2025-02-17 18:35] LABS: Alanine Aminotransfer (ALT/SGP 18 U/L (12-78); Albumin, Blood 4.4 g/dL (3.4-5.0); Albumin/Globulin Ratio 1.2 (0.8-1.8); Alk Phos 71 U/L (50-136); Anion Gap 8 mmol/L (3-11); Aspartate Aminotrans (AST/SGOT 13 U/L (12-37); Bilirubin, Total 0.5 mg/dL (0.1-1.0); Blood Urea Nitrogen 5 mg/dL (8-24); CO2, Blood 27 mmol/L (21-32); Calcium, Blood 9.6 mg/dL (8.5-10.1); Chloride, Blood 110 mmol/L (98-108); Creatinine, Blood 0.72 mg/dL (0.40-1.00); Globulin, Blood 3.7 g/dL (2.2-4.0); Glomerular Filtration Rate 122 (60-); Glucose, Blood 90 mg/dL (70-99); Potassium, Blood 3.2 mmol/L (3.5-5.5); Sodium, Blood 142 mmol/L (136-145); Total Protein, Blood 8.1 g/dL (6.4-8.2)
[2025-02-17 18:37] LABS: Acetaminophen, Random <2.0 ug/mL (10.0-30.0)
[2025-02-17 18:41] LABS: Bacteria Mod /hpf; Color, Urine Pale Yellow (P-Yellow); Red Blood Cells, Urine 0-2 /hpf (0-2); Squamous Epithelial Cells Rare /hpf (Few); White Blood Cells, Urine 0-2 /hpf (0-5)
[2025-02-18 10:01] VITALS: BP 117/69
== END 2025-02-18 10:00 | disposition home or self-care (01) ==
LOC: ER 16:37 → EOR 16:38
PROVIDERS: ADMIT Emergency Medicine
DX: F32.9 Major depressive disorder, single episode, unspecified (principal); R45.851 Suicidal ideations; J45.909 Unspecified asthma, uncomplicated
CPT/HCPCS: 80053; 80320; 81001; 81025; 85025; 87086; 99285; G0378; G0480

== ENCOUNTER 2025-02-20 23:02 | Observation (INO) | payer OTHER ==
[~2025-02-20] VITALS: Ht 152.4 cm; Wt 54.4 kg
[2025-02-20 23:30] LABS: BASOPHILS ABSOLUTE AUTO 0.06 K/mm3 (0.00-0.23); BASOPHILS PERCENT AUTO 1 % (0-2); EOSINOPHILS ABSOLUTE AUTO 0.21 K/mm3 (0.00-0.68); EOSINOPHILS PERCENT AUTO 3 % (0-6); Hematocrit 38.9 % (33.0-51.0); Hemoglobin 13.1 g/dL (11.5-16.0); IMMATURE GRAN ABSOLUTE AUTO 0.01 K/mm3 (0.00-0.10); IMMATURE GRAN PERCENT AUTO 0 % (0-1); LYMPHOCYTES ABSOLUTE AUTO 2.87 K/mm3 (0.84-5.20); LYMPHOCYTES PERCENT AUTO 42 % (21-46); MONOCYTES ABSOLUTE AUTO 0.57 K/mm3 (0.16-1.47); MONOCYTES PERCENT AUTO 8 % (4-13); Mean Corpuscular HGB 31.6 pg (26.0-34.0); Mean Corpuscular HGB Conc 33.7 g/dL (31.5-36.5); Mean Corpuscular Volume 94 fL (80-100); Mean Platelet Volume 9.4 fL (9.1-12.4); NEUTROPHILS ABSOLUTE AUTO 3.13 K/mm3 (1.96-9.15); NEUTROPHILS PERCENT AUTO 46 % (41-73); Platelet Count 306 K/mm3 (150-400); RDW Coefficient Variation 12.2 % (11.7-14.2); RDW Standard Deviation 42.4 fL (35.1-46.3); Red Blood Cell Count 4.14 M/mm3 (3.80-5.20); White Blood Cell Count 6.85 K/mm3 (4.00-11.30)
[2025-02-20 23:53] LABS: Ethanol (Alcohol), Blood, Med 204 mg/dL; Salicylate <1.7 mg/dL (2.8-20.0)
[2025-02-20 23:58] LABS: Acetaminophen, Random <2.0 ug/mL (10.0-30.0); Alanine Aminotransfer (ALT/SGP 16 U/L (12-78); Albumin, Blood 3.7 g/dL (3.4-5.0); Albumin/Globulin Ratio 1.1 (0.8-1.8); Alk Phos 64 U/L (50-136); Anion Gap 13 mmol/L (3-11); Aspartate Aminotrans (AST/SGOT 17 U/L (12-37); Bilirubin, Total 0.3 mg/dL (0.1-1.0); Blood Urea Nitrogen 4 mg/dL (8-24); Bun/Creatinine Ratio 5.2 (12.0-20.0); CO2, Blood 24 mmol/L (21-32); Calcium, Blood 8.4 mg/dL (8.5-10.1); Chloride, Blood 105 mmol/L (98-108); Creatinine, Blood 0.77 mg/dL (0.40-1.00); Globulin, Blood 3.3 g/dL (2.2-4.0); Glomerular Filtration Rate 112 (60-); Glucose, Blood 100 mg/dL (70-99); Sodium, Blood 139 mmol/L (136-145)
[2025-02-21] MEDS ORDERED: NS 1,000 ML IV SCH (00:50)
[2025-02-21] MEDS ORDERED: Potassium Chl 20MEQ/Water100ML 100 ML IV ONE (00:55)
[2025-02-21 01:08] LABS: Base Excess Venous 3.7 mmol/L; Bicarbonate Venous 27.3 mmol/L (24.0-30.0); PCO2 Venous 43.2 mmHg (38-42); pH Blood Venous 7.42 (7.34-7.37)
[2025-02-21] MEDS ORDERED: Potassium Chloride 10 Meq Tablet SA PO ONE (01:30)
[2025-02-21 02:19] LABS: Lithium 1.05 mmol/L (0.60-1.20)
[2025-02-21 09:53] LABS: U Amphetamine Screen Not Detected; U Barbituate Screen Not Detected; U Benzodiazapine Screen Not Detected; U Buprenorphine Screen Not Detected; U Cannabinoids Screen Not Detected; U Cocaine Screen Not Detected; U Methadone Screen Not Detected; U Methamphetamine Screen Not Detected; U Opiates Screen Not Detected; U Oxycodone Screen Not Detected; U Phencyclidine Screen Not Detected
[2025-02-21 10:02] LABS: Lithium 1.45 mmol/L (0.60-1.20)
[2025-02-21] MEDS ORDERED: Nicotine 14 MG PATCH TOP ONE (15:15)
[2025-02-21 15:22] VITALS: BP 128/81
[2025-02-21 15:46] LABS: Lithium 0.85 mmol/L (0.60-1.20)
== END 2025-02-21 16:31 | disposition other institution (70) ==
LOC: ER 23:02 → EOR 23:03
PROVIDERS: Student in an Organized Health Care Education/Training Program; ADMIT Emergency Medicine
DX: T56.892A Toxic effect of other metals, intentional self-harm, initial encounter (principal); T43.212A Poisoning by selective serotonin and norepinephrine reuptake inhibitors, intentional self-harm, initial encounter; R45.851 Suicidal ideations; F31.9 Bipolar disorder, unspecified
CPT/HCPCS: 80053; 80178; 80320; 82803; 84443; 84703; 85025; 86592; 93005; 93010; 99285-25; A9270; G0378; G0480; J3480

== ENCOUNTER 2025-02-21 09:11 | Inpatient (IN) | payer OTHER ==
[~2025-02-21] VITALS: Ht 152.4 cm; Wt 53.1 kg
[2025-02-21 16:34] VITALS: BP 120/89
[2025-02-21] MEDS ORDERED: Haloperidol 5 MG Tab PO PRN (16:50)
[2025-02-21] MEDS ORDERED: Haloperidol Lactate Inj. 5 MG/ML Injection IM PRN (16:50)
[2025-02-21] MEDS ORDERED: Acetaminophen 325 MG TABLET PO PRN (16:55)
[2025-02-21] MEDS ORDERED: OLANZapine ODT 10 MG Tab MM PRN (16:55)
[2025-02-21] MEDS ORDERED: Polyethylene Glycol 3350 17 gm PO PRN (16:55)
[2025-02-21] MEDS ORDERED: Aluminum Hydroxide 320MG/5ML 473 ML PO PRN (16:55)
[2025-02-21] MEDS ORDERED: TraZODone HCl 50 MG Tab PO PRN (16:55)
[2025-02-21] MEDS ORDERED: DiphenhydrAMINE HCl 50 MG/ML 1ML Vial IM PRN (16:55)
[2025-02-21] MEDS ORDERED: DiphenhydrAMINE HCl 50 MG Cap PO PRN (16:55)
[2025-02-21] MEDS ORDERED: Calcium Carbonate 500 MG Tab Chew PO PRN (16:55)
[2025-02-21] MEDS ORDERED: HydrOXYzine Pamoate 50 MG Cap PO PRN (17:00)
[2025-02-21] MEDS ORDERED: Ibuprofen 600 MG Tab PO PRN (17:00)
[2025-02-21] MEDS ORDERED: Melatonin 3 MG Tab PO PRN (17:00)
[2025-02-21] MEDS ORDERED: Ondansetron 4 MG SoluTab MM PRN (17:00)
[2025-02-21] MEDS ORDERED: LORazepam 2 MG/ML 1ML Injection IM PRN (17:00)
[2025-02-21] MEDS ORDERED: LORazepam 2 MG Tab PO PRN (17:00)
--- NOTE | 2025-02-21 17:29 | NUR ---
NURSING ADMISSION NOTE: 1635, WT 53.1KG knda PATIENT WAS TRANSFERED FROM ER AT APROX 1635. SHE HAD BEEN ADMITTED INTOXICATED AND SUICIDAL, WITH HIGH LEVELS OF LITHIUM NOTED IN BLOOD STREAM. ER STAFF REPORT THAT SHE IS NOT ON CIWA SCALE BECAUSE SHE IS NOT HAVING SIGNS OR SYMPTOMS OF ALCHOL WITHDRAWAL. ANNA REPORTS THAT HER HISTORY INCLUDES BIPOLAR DEPRESSION ANXIETY ADHD. ER STAFF ENDORSED PPD. PATIENT CHILD IS ABOUT A YEAR OLD. PATIENT REPORTS THAT SHE IS HAVING SUICIDAL IDEATION. SHE REPORTS THAT SHE IS ALWAYS TIRED. SHE WAS BROUGHT IN, YESSICA SIGNED FOR, SKIN CHECK DONE, CONSENT FORMS SIGNED. PATIENT WAS SHOWN TO HER ROOM, PROVIDED WITH A WATER CUP AND PAPER TRASH BAG. PATIENT WAS INTRODUCED TO HER ROOM MATE AND SHE ATE DINNER. QUICK ADMIT PORTION OF HER ADMISSION IS DONE.
[2025-02-21 17:52] VITALS: BP 120/89
[2025-02-21 20:54] VITALS: BP 123/83
[2025-02-21] MEDS ORDERED: Gabapentin 300 MG Cap PO SCH (21:00)
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
--- NOTE | 2025-02-22 04:14 | NUR ---
SHIFT SUMMARY: PATIENT WAS IN HER BED RESTING BUT AWAKE AT THE BEGINNING OF THE SHIFT. SHE DID NOT WANT A SNACK THIS SHIFT. SHE WAS COMPLIANT WITH EVENING MEDICATIONS. SHE GOT UP AFTER SNACK TIME AND FINISHED HER ADMISSION WITH FIONA CABA. SHE THEN WENT BACK TO BED WHERE SHE WAS NOTED TO BE RESTING QUIETLY WITH EYES CLOSED AND RESPIRATIONS CONFIRMED FOR THE REMAINDER OF THE SHIFT. SHE DENIED SUICIDAL IDEATION AND THOUGHTS OF SELF HARMING AT THIS TIME. SHE STATED THAT SHE WOULD TELL STAFF IF THAT CHANGED. CONTINUING TO MONITOR FOR SAFETY WITH Q15 MINUTE CHECKS.
[2025-02-22 06:47] LABS: CHOL/HDL RATIO 1.5; Cholesterol 152 mg/dL (50-200); HDL Cholesterol 100 mg/dL (>39); LDL/HDL RATIO 0.4; Low Density Lipoprotein Chol 37 mg/dL (0-110); Triglycerides 74 mg/dL (30-140); Very Low Density Lipoprot Chol 14 mg/dL (6-28)
[2025-02-22] MEDS ORDERED: Multivitamins 1 Tab PO SCH (09:00)
[2025-02-22] MEDS ORDERED: Thiamine HCl 100 MG Tab PO SCH (09:00)
[2025-02-22] MEDS ORDERED: LamoTRIgine 100 MG Tab PO SCH (09:00)
[2025-02-22] MEDS ORDERED: Nicotine 21 MG PATCH TOP SCH (09:00)
[2025-02-22] MEDS ORDERED: Naltrexone HCl 50 MG Tab PO SCH (09:00)
[2025-02-22] MEDS ORDERED: Folic Acid 1 MG TAB PO SCH (09:00)
[2025-02-22] MEDS ORDERED: LamoTRIgine 25 MG Tab PO SCH (09:00)
--- NOTE | 2025-02-22 17:30 | NUR ---
SHIFT SUMMARY: PT A/O X4. STATES SHE IS STILL SI. DENIES HI AND AVH. STATES SHE WOULD USE PILLS AND ALCOHOL TO HARM HERSELF. SHE SAYS SHE "JUST WANT TO ." ASKED HE WHO WOULD TAKE CARE OF HE BABY AND SHE SAID HER MOTHER WOULD TAKE CARE OF HER. PT STATES THAT SHE WILL NOT HARM HERSELF WHILE HERE AT THE [facility]. PT CRIES DURING INTERVIEW. REASSURANCE GIVEN WITH POSITIVE RE-ENFORCEMENT. WILL CONTINUE TO MONITOR.
[2025-02-22 20:18] VITALS: BP 120/92
--- NOTE | 2025-02-23 04:16 | NUR ---
SHIFT SUMMARY PT IN BED AT START OF SHIFT, AWAKES EASILY. PT DENIES ANY SI, THOUGHTS OF SELF HARM OR HALLUCINATIONS AT THIS TIME. PT REPORTS HER MOOD IS "OK, I'M JUST TIRED." PT IS SOFT SPOKEN AND HAS A FLAT AFFECT. SHE HAD EVENING SNACK, WAS COMPLIANT WITH MEDICATIONS, AND RECEIVED PRN TRAZODONE. SHE WENT TO BED SHORTLY AFTER SNACK AND HAS BEEN SLEEPING THROUGHOUT THE NIGHT, WITH RESPIRATIONS CONFIRMED. Q15 MINUTE CHECKS TO CONTINUE PER PT SAFETY/UNIT PROTOCOL.
[2025-02-23 08:25] VITALS: BP 120/75
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
[2025-02-23 20:21] VITALS: BP 121/83
--- NOTE | 2025-02-24 04:45 | NUR ---
SHIFT SUMMARY PATIENT AWAKE AMBULATING IN [place]. VERBALIZED SI CONTINUES BUT NO PLAN. DENIES HI OR AVH. COOPERATIVE WITH MEDICATIONS. APPEARS TO BE SLEEPING WELL T/O NIGHT, RESP EVEN AND UNLABORED. CONTINUE TO MONITOR Q15MIN
[2025-02-24 08:08] VITALS: BP 131/86
--- NOTE | 2025-02-24 17:52 | NUR ---
SHIFT SUMMARY: PT ALERT, ORIENTED AND COOPERATIVE WITH CARE. DENIED SI, HI AND AVH. STATES THAT SHE HAS THOUGHTS OF NOT WANTING TO BE ALIVE BUT DENIES ANY PLAN OR INTENTION FOR SELF HARM. PT WAS PRESENT ON THE UNIT, ATTENDED GROUPS AND MEALS. SHE WAS MEDICATED WITH PRN PER EMAR FOR C/O ANXIETY AT DINNER TIME.
[2025-02-24 20:10] VITALS: BP 129/87
[2025-02-24] MEDS ORDERED: LamoTRIgine 100 MG Tab PO SCH (21:00)
--- NOTE | 2025-02-25 05:58 | NUR ---
SHIFT SUMMARY PT DENIES SI, HI, AVTH. PLEASANT AND COOPERATIVE, WENT TO SNACKTIME. WENT TO BED EARLY. NO ACUTE EVENTS OVERNIGHT.
[2025-02-25 08:09] VITALS: BP 121/80
--- NOTE | 2025-02-25 17:30 | NUR ---
SHIFT SUMMARY PT A/O X4; PLEASANT AND COOPERATIVE WITH CARE. SHE DENIES SI, HI, AND HALLUCINATIONS. SHE ATTENDED ALL MEALS AND GROUPS THIS SHIFT. NO NEW COMPLAINTS THIS SHIFT. PT TO POTENTIALLY DISCHARGE ON MONDAY.
[2025-02-25 20:00] VITALS: BP 115/74
--- NOTE | 2025-02-26 04:05 | NUR ---
SHIFT SUMMARY PT WALKING IN HALLWAY AT START OF SHIFT. SHE DENIES ANY SI, HI, THOUGHTS OF SELF HARM OR AVH. SHE STATES SHE IS FEELING BETTER. RATED HER DEPRESSION AT A 4/10. SHE HAD EVENING SNACK AND WAS COMPLIANT WITH MEDICATIONS. SHE RECEIVED PRN TRAZODONE AND HAS SLEPT THROUGHOUT THE NIGHT, WITH RESPIRATIONS CONFIRMED. Q15 MINUTE CHECKS TO CONTINUE PER UNIT PROTOCOL/PT SAFETY.
[2025-02-26 08:16] VITALS: BP 127/93
--- NOTE | 2025-02-26 17:53 | NUR ---
SHIFT SUMMARY PT A/O X4; PLEASANT AND COOPERATIVE WITH CARE. SHE DENIES SI, HI, HALLUCINATIONS. PT STATES THAT SHE IS DOING MUCH BETTER AND RATES HER DEPRESSION A 3/10. SHE ATTENDS ALL GROUPS/MEALS AND INTERACTS WITH PEER APPROPRIATELY. PT TO POTENTIALLY DISCHARGE ON MONDAY.
[2025-02-26 20:09] VITALS: BP 124/86
--- NOTE | 2025-02-27 04:14 | NUR ---
SHIFT SUMMARY PT PRESENT IN MILIEU, INTERACTING MORE WITH PEERS. SHE DENIES ANY SI, HI, THOUGHTS OF SELF HARM OR AVH. SHE STATES "I'M DOING SO MUCH BETTER". RATED DEPRESSION 2/10. STATES SHE FEELS THAT SHE IS READY TO GO HOME AND IS LOOKING FORWARD TO SEEING HER DAUGHTER. PT HAD EVENING SNACK, WAS COMPLIANT WITH MEDICATIONS, RECEIVED PRN TRAZODONE. SHE COLORED IN GROUP ROOM WITH PEERS AND WENT TO BED. Q15 MINUTE CHECKS TO CONTINUE PER PT SAFETY.
[2025-02-27 08:29] VITALS: BP 124/86
--- NOTE | 2025-02-27 08:37 | NUR ---
PT AWAKE AND EATING BREAKFAST THIS MORNING, SHE IS SMILING AND TALKATIVE, SHE REPORTS HER DAUGHTER WALKED YESTERDAY. SHE IS EXCITED THAT SHE WILL BE ABLE TO SEE HER WHEN SHE IS DISCHARGED. TEMPERATURE 100.0 THIS AM, SHE REPORTS SHE IS FEELING TIRED, NO OTHER SYMPTOMS AT THIS TIME, WILL CONTINUE TO MONITOR. SHE IS STTING IN MORNING GROUP AT THIS TIME.
--- NOTE | 2025-02-27 09:45 | NUR ---
IMPORTANT DISCHARGE INFORMATION PATIENT TO BE DISCHAGED ON 02/28/25. HER MOTHER LEE ANN WILL PICK HER UP AROUND 3:15PM. HER NUMBER IS [facility]LLOW UP [facility] APPOINTMENT WITH PCP DR. ROSARIO IS MONDAY. 03/06/25 AT 10:30 AM. [facility] [phone] PHARMACY: [facility] RESOURCES GIVEN FOR [facility] AUTHORITY
--- NOTE | 2025-02-27 17:17 | NUR ---
SHIFT SUMMARY ASSUMED CARE OF PT AT 0900. VERY PLEASANT PATIENT, HAS PARTICIPATED IN ALL GROUPS, MEALS AND TV TIME. SHE DENIES SI/HI/AVH, STS SHE FEELS SHE IS DOING MUCH BETTER, MOST LIKELY WILL D/C TOMORROW. SHE HAS RECIEVED Q15 VISUAL SAFETY CHECKS ALL SHIFT
[2025-02-27 19:35] VITALS: BP 127/89
--- NOTE | 2025-02-28 04:05 | NUR ---
SHIFT SUMMARY PT PRESENT IN MILIEU AT START OF SHIFT, INTERACTS WITH STAFF AND PEERS. PT DENIES ANY SI, HI, THOUGHTS OF SELF HARM OR AVH. SHE IS EXCITED TO BE GOING HOME AND STATES SHE FEELS SHE IS READY TO GO. PT COMPLIANT WITH MEDICATIONS, RECEIVED PRN TRAZODONE, HAD EVENING SNACK AND WATCHED TV BEFORE GOING TO BED. PT HAS BEEN SLEEPING THROUGHOUT THE NIGHT. Q15 MINUTE CHECKS TO CONTINUE PER PT SAFETY.
[2025-02-28 12:15] VITALS: BP 130/90
--- NOTE | 2025-02-28 15:55 | NUR ---
1554 patient was discharged from the [facility]. Transport was provided by her mother. Discharge paperwork was reviewed, patient education sent home, and patient was alerted to her follow up appointment with her PCP, and the need to have a lithium level in 7 days post dc. Patients belonings were returnd and were signed for.
--- NOTE | 2025-03-03 14:29 | NUR ---
PT CALL RE: MISSING RX REFILLS FROM PHARMACY PT CALLED [facility] TO REPORT HER PHARMACY DID NOT HAVE ANY RX'S WAITING FOR HER FOLLOWING HER DC ON 02/28/25. SPOKE WITH PROVIDER (DR NICHOLE) TO CLARIFY ORDERS AND WAS GIVEN VERBAL TO CALL IN VISTARIL 50MG 1PO QD #30, LAMICTAL 100MG 1 PO QD #30 AND LITHIUM 600MG 1 PO QHS #30 WITH NO REFILLS. PT NOTFIED OF RX'S CALLED IN TO [facility].
== END 2025-02-28 15:54 | disposition home or self-care (01) | DRG 885 ==
LOC: BHU 09:11
PROVIDERS: ADMIT Psychiatry & Neurology Psychiatry
DX: F31.9 Bipolar disorder, unspecified (principal); R45.851 Suicidal ideations; F10.20 Alcohol dependence, uncomplicated; J45.909 Unspecified asthma, uncomplicated; Z98.890 Other specified postprocedural states; F12.90 Cannabis use, unspecified, uncomplicated; Z79.899 Other long term (current) drug therapy
CPT/HCPCS: 36415; 80061; 83036; A9270

== ENCOUNTER → 2025-03-06 | Outpatient (CLI) | payer OTHER ==
[2025-03-06 16:29] LABS: BASOPHILS ABSOLUTE AUTO 0.06 K/mm3 (0.00-0.23); BASOPHILS PERCENT AUTO 1 % (0-2); EOSINOPHILS ABSOLUTE AUTO 0.42 K/mm3 (0.00-0.68); EOSINOPHILS PERCENT AUTO 5 % (0-6); Hematocrit 41.7 % (33.0-51.0); Hemoglobin 13.8 g/dL (11.5-16.0); IMMATURE GRAN ABSOLUTE AUTO 0.03 K/mm3 (0.00-0.10); IMMATURE GRAN PERCENT AUTO 0 % (0-1); LYMPHOCYTES ABSOLUTE AUTO 1.75 K/mm3 (0.84-5.20); LYMPHOCYTES PERCENT AUTO 20 % (21-46); MONOCYTES ABSOLUTE AUTO 0.49 K/mm3 (0.16-1.47); MONOCYTES PERCENT AUTO 6 % (4-13); Mean Corpuscular HGB Conc 33.1 g/dL (31.5-36.5); Mean Corpuscular Volume 97 fL (80-100); Mean Platelet Volume 10.3 fL (9.1-12.4); NEUTROPHILS ABSOLUTE AUTO 6.17 K/mm3 (1.96-9.15); NEUTROPHILS PERCENT AUTO 69 % (41-73); Platelet Count 352 K/mm3 (150-400); RDW Coefficient Variation 12.9 % (11.7-14.2); RDW Standard Deviation 46.4 fL (35.1-46.3); Red Blood Cell Count 4.31 M/mm3 (3.80-5.20); White Blood Cell Count 8.92 K/mm3 (4.00-11.30)
[2025-03-06 19:38] LABS: Lithium <0.20 mmol/L (0.60-1.20)
[2025-03-07 00:04] LABS: Albumin, Blood 3.9 g/dL (3.4-5.0); Albumin/Globulin Ratio 1.1 (0.8-1.8); Bilirubin, Total 0.3 mg/dL (0.1-1.0); Bun/Creatinine Ratio 12.4 (12.0-20.0); Calcium, Blood 9.3 mg/dL (8.5-10.1); Creatinine, Blood 0.57 mg/dL (0.40-1.00); Globulin, Blood 3.7 g/dL (2.2-4.0); Potassium, Blood 3.8 mmol/L (3.5-5.5); Total Protein, Blood 7.6 g/dL (6.4-8.2)
== END ==
LOC: LAB SHORT 14:40 → LAB 14:40
PROVIDERS: Student in an Organized Health Care Education/Training Program
DX: F31.81 Bipolar II disorder (principal)
CPT/HCPCS: 80053; 80178; 85025

== ENCOUNTER → 2025-05-12 | Outpatient (CLI) | payer OTHER | LOC: LAB SHORT 14:20 → LAB 14:20 | DX: R30.0 Dysuria (principal) | CPT/HCPCS: 87077; 87086; 87186 ==